=== PATIENT | female | born 1995 | race Two or more races ===

== ENCOUNTER 2016-10-11 21:09 | Emergency (ER) | payer MEDICAID ==
[2016-10-11] MEDS ORDERED: CEPHALEXIN 250 MG Prepack 8 PO ONE ×2 (22:14→22:16)
== END 2016-10-11 22:25 | disposition home or self-care (01) ==
DX: L03.312 Cellulitis of back [any part except buttock and flank] (principal); S30.810A Abrasion of lower back and pelvis, initial encounter; X58.XXXA Exposure to other specified factors, initial encounter

== ENCOUNTER 2017-07-23 22:30 | Emergency (ER) | payer MEDICAID ==
[2017-07-23 22:57] LABS: BASOPHILS # (AUTO) 0.1 10^3/uL (0.0-0.1); BASOPHILS % (AUTO) 0.9 %; EOSINOPHILS # (AUTO) 0.2 10^3/uL (0.0-0.7); EOSINOPHILS % (AUTO) 1.5 %; HCT - HEMATOCRIT 38.4 % (37.0-47.0); HGB - HEMOGLOBIN 13.4 g/dL (12.0-16.0); LYMPHOCYTES # (AUTO) 2.7 10^3/uL (1.5-3.5); LYMPHOCYTES % (AUTO) 18.2 %; MEAN CORPUSCULAR HGB CONC 34.9 g/dL (32.0-36.0); MEAN CORPUSCULAR VOLUME 88.9 fL (81.0-99.0); MEAN PLATELET VOLUME 8.3 fL (7.9-10.8); MONOCYTES # (AUTO) 0.9 10^3/uL (0.0-1.0); MONOCYTES % (AUTO) 6.3 %; NEUTROPHILS % (AUTO) 73.1 %; RED BLOOD COUNT 4.32 10^6/uL (4.20-5.40); RED CELL DISTRIBUTION WIDTH 13.8 % (12.0-15.0)
[2017-07-23 22:58] LABS: BILIRUBIN,URINE NEGATIVE (NEGATIVE); PH,URINE 6.5 PH (5.0-7.5)
[2017-07-23 22:59] LABS: UA CHARGE (STRIP ONLY) YES; UR CULTURE IF IND NOT INDICATED
[2017-07-23 23:00] LABS: HCG UR QUAL NEGATIVE
[2017-07-23] MEDS ORDERED: ONDANSETRON ODT 4 MG TABLET TL STA (23:02)
[2017-07-23] MEDS ORDERED: ACETAMINOPHEN 500 MG TABLET PO STA (23:02)
[2017-07-23] MEDS ORDERED: DICYCLOMINE 10 MG CAPSULE PO STA (23:02)
[2017-07-23 23:10] LABS: ALBUMIN/GLOBULIN RATIO 1.3 (1.0-2.2); BILIRUBIN,TOTAL 0.4 mg/dL (0.2-1.0); CALCIUM 9.5 mg/dL (8.5-10.3); CREATININE 0.5 mg/dL (0.4-1.0); POTASSIUM 3.5 mmol/L (3.5-5.0); TOTAL PROTEIN 8.4 g/dL (6.7-8.2)
[2017-07-23] MEDS ORDERED: DICYCLOMINE 10 MG CAPSULE PO ONE (23:17)
[2017-07-23] MEDS ORDERED: ONDANSETRON ODT 4 MG TABLET ONE (23:17)
[2017-07-23] MEDS ORDERED: ACETAMINOPHEN 500 MG TABLET PO ONE (23:17)
--- NOTE | 2017-07-23 23:53 | ED Physician Documentation ---
PD HPI ABD PAIN - Stated complaint Stated Complaint: ABD PX/V/F - Chief complaint Chief Complaint: Abd Pain - History obtained from History obtained from: Patient, Family - History of Present Illness Timing - onset: How many days ago (3) Timing - details: Gradual onset, Intermittant Quality: Cramping, Aching Location: Epigastric Worsened by: Eating, Palpation Associated symptoms: Nausea, Vomiting. No: Fever, Diarrhea, Constipation Similar symptoms before: Has not had sx before Recently seen: Not recently seen - Additional information Additional information: Patient is a 21 year old female with no significant past medical history who is presenting to the emergency department for abdominal pain. patient states that it has been going on for the last few days. Patient states that it comes and goes and feels like it is the middle of her stomach. Patient states that she has had some nausea and vomiting but has not taken any medication for it. Review of Systems Constitutional: denies: Fever, Chills Eyes: reports: Reviewed and negative Ears: reports: Reviewed and negative Nose: reports: Reviewed and negative Throat: reports: Reviewed and negative Cardiac: denies: Chest pain / pressure, Palpitations GI: reports: Abdominal Pain, Nausea, Vomiting. denies: Abdominal Swelling, Constipation, Diarrhea : denies: Dysuria, Frequency, Hesitancy, Discharge, Vaginal bleeding Skin: denies: Rash, Lesions Musculoskeletal: reports: Reviewed and negative Neurologic: reports: Reviewed and negative Immunocompromised: denies: Immunocompromised PD PAST MEDICAL HISTORY - Past Medical History Past Medical History: No - Past Surgical History Past Surgical History: No - Present Medications Home Medications: Ambulatory Orders Medication Instructions Recorded Confirmed Dicyclomine [Bentyl] 10 mg PO QID #14 capsule 07/23/17 Ondansetron Odt [Zofran] 4 mg TL Q6H PRN #14 tablet 07/23/17 - Allergies Allergies/Adverse Reactions: Allergies Allergy/AdvReac Type Severity Reaction Status Date / Time No Known Drug Allergies Allergy Verified 07/23/17 22:38 - Social History Does the pt smoke?: No Smoking Status: Never smoker Does the pt drink ETOH?: No Does the pt have substance abuse?: No - Immunizations Immunizations are current?: No - POLST Patient has POLST: No PD ED PE NORMAL - Vitals Vital signs reviewed: Yes - General General: Alert and oriented X 3, No acute distress, Well developed/nourished - HEENT HEENT: Atraumatic, PERRL, Moist mucous membranes - Neck Neck: Supple, no meningeal sign, No JVD - Cardiac Cardiac: RRR, No murmur - Respiratory Respiratory: No respiratory distress, Clear bilaterally - Abdomen Abdomen: Soft, Non tender, Non distended - Female Female : Pt declined - Derm Derm: Normal color, Warm and dry, No rash - Extremities Extremities: No deformity, No edema - Neuro Neuro: Alert and oriented X 3, No motor deficit, Normal speech Eye Opening: Spontaneous Motor: Obeys Commands Verbal: Oriented GCS Score: 15 Results - Vitals Vitals: Vital Signs - 24 hr 07/23/17 22:30 Temperature 36.9 C Heart Rate 86 Respiratory 16 Rate Blood Pressure 137/79 H O2 Saturation 100 Oxygen O2 Source Room air - Labs Labs: Laboratory Tests 07/23/17 07/23/17 07/23/17 21:57 21:57 22:46 WBC 15.0 H RBC 4.32 Hgb 13.4 Hct 38.4 MCV 88.9 MCH 31.0 MCHC 34.9 RDW 13.8 Plt Count 301 MPV 8.3 Neut # 11.0 H Lymph # 2.7 [place] # 0.9 Eos # 0.2 Baso # 0.1 Absolute Nucleated RBC 0.00 Nucleated RBC % 0.0 Sodium 137 Potassium 3.5 Chloride 99 L Carbon Dioxide 25 Anion Gap 13.0 BUN 8 Creatinine 0.5 Estimated GFR (MDRD) 157 Glucose 108 H Calcium 9.5 Total Bilirubin 0.4 AST 19 ALT 26 Alkaline Phosphatase 68 Total Protein 8.4 H Albumin 4.7 Globulin 3.7 Albumin/Globulin Ratio 1.3 Lipase 22 Urine Color YELLOW Urine Clarity CLEAR Urine pH 6.5 Ur Specific [place] 1.015 Urine Protein NEGATIVE Urine Glucose (UA) NEGATIVE Urine Ketones NEGATIVE Urine Occult Blood NEGATIVE Urine Nitrite NEGATIVE Urine Bilirubin NEGATIVE Urine Urobilinogen 0.2 (NORMAL) Ur Leukocyte Esterase NEGATIVE Ur Microscopic Review NOT INDICATED Urine Culture Comments NOT INDICATED Urine HCG, Qual NEGATIVE - Rads (name of study) abd x-ray Radiology: EMP read indepedently (non specific bowel gas pattern) PD MEDICAL DECISION MAKING - ED course Complexity details: reviewed old records, reviewed results, re-evaluated patient , considered differential, d/w patient, d/w family ED course: Patient was seen and examined at bedside. Patient's vital signs were within normal limits. urine was collected and labs were drawn. Magdalena was treated with tylenol, zofran and bentyl. Imaging was ordered and was also within normal limits. Patient's abdomen was soft, non-tender, and non distended. Patient stated that her pain resolved. magdalena's imaging showed mild constipation. patient required no further work up at this time and was stable for discharge with outpatient follow up. Departure - Departure Disposition: 01 Home, Self Care Clinical Impression: Abdominal pain Condition: Good Instructions: ED Abdominal Pain Unkn Cause Follow-Up: primary,care provider [Other] - Within 1 week Prescriptions: Dicyclomine [Bentyl] 10 mg PO QID #14 capsule Ondansetron Odt [Zofran] 4 mg TL Q6H PRN #14 tablet PRN Reason: Nausea / Vomiting Comments: Your diagnostics today only had a small elevation in your wbcs, which makes it seem you are fighting and infection, likely viral in nature. It is important that you take the zofran for nausea, and stay well hydrated with water and electrolyte solutions (gatorade). You can take tylenol or bentyl as needed for pain. You should follow up with your doctor if your symptoms persist. You may return to the emergency department at any time for new, worsening or uncontrollable symptoms.
--- NOTE | 2017-07-23 23:59 | XRAY Preliminary Report ---
Exam: XR ABDOMEN 2 VIEW IMPRESSION: 1. Normal gas pattern with moderate stool in the colon. [facility] SITE ID: [id number]
--- NOTE | 2017-07-24 00:01 | XRAY Report ---
EXAM: ABDOMEN RADIOGRAPHY EXAM DATE: 07/23/2017 11:36 PM. CLINICAL HISTORY: Abdominal pain. COMPARISON: None. TECHNIQUE: 2 views. FINDINGS: Lung Bases: Unremarkable. Bowel Gas Pattern: Moderate stool in the colon. No dilated loops or abnormal fluid levels. Free Air: None. Other: None. IMPRESSION: 1. Normal gas pattern with moderate stool in the colon. [facility] Referring Provider Line: [phone] SITE ID: [id number]
[2017-07-24 00:02] VITALS: BP 120/64
== END 2017-07-23 23:05 | disposition home or self-care (01) ==
LOC: ED 22:30
DX: R10.13 Epigastric pain (principal); R11.2 Nausea with vomiting, unspecified
CPT/HCPCS: 36415; 74020; 80053; 81003; 81025; 83690; 85025; 99283; A9270; Q0162; 81001; 87086